=== PATIENT | male | born 1935 | race Caucasian/White ===

== ENCOUNTER 2021-12-28 14:09 | Emergency (ER) | payer MEDICARE, SELFPAY ==
[2021-12-28 14:35] VITALS: BP 110/63; PULSE 85; RESP 16; TEMP 36.4; O2SAT 99
--- NOTE | 2021-12-28 15:09 | ED.GENADULT ---
HPI - General Adult General Chief complaint: Unspecified Stated complaint: almost 600 blood glucose History of Present Illness HPI narrative: Tyler is a very pleasant 86M with a PMH of DMII, prostate cancer s/p surgery, and gout that presented to the emergency department with an elevated. glucose. For the last week his sugar has continued to rise. Today it was nearly 600 so he came in. He denies CP, SOB, N/V, diarrhea, polyuria and polydiapsia as well as fevers and chills. Related Data Home Medications Medication Instructions Recorded Confirmed allopurinol 100 mg tablet 100 mg PO DAILY 12/28/21 12/28/21 alogliptin 6.25 mg tablet 6.25 mg PO DAILY 12/28/21 12/28/21 bicalutamide 50 mg tablet 50 mg PO DAILY 12/28/21 12/28/21 glipizide 10 mg tablet 10 mg PO BID 12/28/21 12/28/21 hydrochlorothiazide 25 mg tablet 25 mg PO DAILY 12/28/21 12/28/21 lisinopril 20 mg tablet 20 mg PO DAILY 12/28/21 12/28/21 simvastatin 40 mg tablet 40 mg PO HS 12/28/21 12/28/21 tramadol 50 mg tablet 50 mg PO Q6H PRN Pain 12/28/21 12/28/21 Allergies Allergy/AdvReac Type Severity Reaction Status Date / Time No Known Allergies Allergy Verified 12/28/21 15:37 Review of Systems Review of Systems: All systems reviewed & are unremarkable except as noted in HPI and below Exam Const: Nutritional Appearance: well nourished Orientation/consciousness: patient oriented x3 HENMT: Head: normal to inspection Eyes: Conjunctivae: conjunctivae normal Pupils: Equal, round and reactive pupils present EOM: EOMs intact bilaterally Neck: Neck: normal visual inspection Chest: Chest palpation & inspection: normal inspection of the chest Resp: Effort & Inspection: normal respiratory effort Cardio: Rate: regular rate Rhythm: regular rhythm GI: Other: normal to inspection Skin: General skin exam: normal color Neuro: General: patient oriented x3 and moves all extremities Extrem: Other: no deformity Psych: Mental Status: mental status grossly normal Course Course Emergency Course: he was given a liter of fluids and 10 u of insulin. Sugar came down to 280's so 5u was given and it came down to 216 Vital Signs Vital signs: Vital Signs Temperature 97.6 F 12/28/21 14:35 Pulse Rate 85 12/28/21 14:35 Respiratory Rate 16 12/28/21 14:35 Blood Pressure 110/63 12/28/21 14:35 Pulse Oximetry 99 12/28/21 14:35 Oxygen Delivery Room Air 12/28/21 14:35 Temperature 97.4 F L 12/28/21 18:25 Pulse Rate 83 12/28/21 18:25 Respiratory Rate 16 12/28/21 18:25 Blood Pressure 119/70 12/28/21 18:25 Pulse Oximetry 99 12/28/21 18:25 Oxygen Delivery Room Air 12/28/21 18:25 Medical Decision Making Vital Signs Vital Signs: Vital Signs Temperature 97.6 F 12/28/21 14:35 Pulse Rate 85 12/28/21 14:35 Respiratory Rate 16 12/28/21 14:35 Blood Pressure 110/63 12/28/21 14:35 Pulse Oximetry 99 12/28/21 14:35 Oxygen Delivery Room Air 12/28/21 14:35 Temperature 97.4 F L 12/28/21 18:25 Pulse Rate 83 12/28/21 18:25 Respiratory Rate 16 12/28/21 18:25 Blood Pressure 119/70 12/28/21 18:25 Pulse Oximetry 99 12/28/21 18:25 Oxygen Delivery Room Air 12/28/21 18:25 Lab Data Result diagrams: 12/28/21 15:15 12/28/21 15:15 Labs: Lab Results 12/28/21 12/28/21 12/28/21 Range/Units 15:15 15:15 15:15 WBC 12.8 H (4.8-10.8) K/mm3 RBC 4.82 (4.70-6.10) M/mm3 Hgb 14.4 (12.4-15.3) g/dL Hct 42.5 (37.0-46.0) % MCV 88.2 (78.0-102.0) fL MCH 29.9 (27.0-31.0) pg MCHC 33.9 (32.0-36.0) g/dL RDW 12.1 (11.6-14.4) % Plt Count 228 (150-420) K/mm3 MPV 10.4 (8.7-11.0) fl Immature Gran % (Auto) 0.5 H (0.0-0.0) % Neut % (Auto) 64.5 (50.0-70.0) % Lymph % (Auto) 25.2 (18.0-42.0) % [place] % (Auto) 7.7 (2.0-11.0) % Eos % (Auto) 1.3 (1.0-6.0) % Baso % (Auto) 0.8 (0.0-1.0) % Lymph # (Auto) 3.23
[2021-12-28] MEDS: SODIUM CHLORIDE 0.9% IV 1,000 ML 999 ML IV CONT (15:18)
[2021-12-28 15:20] LABS: Basophils Percent Auto 0.8 % (0.0-1.0); Eosinophils Absolute Auto 0.17 K/mm3 (0.02-0.50); Eosinophils Percent Auto 1.3 % (1.0-6.0); Hematocrit 42.5 % (37.0-46.0); Hemoglobin 14.4 g/dL (12.4-15.3); Immature Granulocyte Absolute 0.06 K/mm3 (0.00-0.00); Immature Granulocyte Percent A 0.5 % (0.0-0.0); Lymphocytes Absolute Auto 3.23 K/mm3 (1.10-4.50); Lymphocytes Percent Auto 25.2 % (18.0-42.0); Mean Corpuscular HGB Conc 33.9 g/dL (32.0-36.0); Mean Corpuscular Hemoglobin 29.9 pg (27.0-31.0); Mean Corpuscular Volume 88.2 fL (78.0-102.0); Mean Platelet Volume 10.4 fl (8.7-11.0); Monocytes Absolute Auto 0.99 K/mm3 (0.10-0.90); Monocytes Percent Auto 7.7 % (2.0-11.0); Neutrophils Absolute Auto 8.3 K/mm3 (1.7-7.2); Neutrophils Percent Auto 64.5 % (50.0-70.0); Platelet Count Result 228 K/mm3 (150-420); Red Blood Count 4.82 M/mm3 (4.70-6.10); Red Cell Distribution Width 12.1 % (11.6-14.4); White Blood Count 12.8 K/mm3 (4.8-10.8)
[2021-12-28 15:21] LABS: Add Urine Microscopic? YES; Appearance Urine Clear (Clear); Bilirubin Urine Negative (Negative); Blood Urine Negative (Negative); Color Urine Light Yellow (Yellow); Glucose Urine UA 3+ (Negative); Ketones Urine Negative (Negative); Leukocyte Esterase Ur Negative (Negative); Nitrate Urine Negative (Negative); Protein Urine Negative (Negative); Urobilinogen Urine 0.2 mg/dL (0.2-1.0)
[2021-12-28 15:22] LABS: HCO3 VBG 27.7 mEq/l (24.0-30.0); PCO2 VBG 51.6 mmHg (42.0-48.0); PO2 VBG 27.6 mmHg (35.0-45.0); pH VBG 7.35 (7.33-7.43)
[2021-12-28 15:23] LABS: Device ROOM AIR
[2021-12-28 15:25] LABS: Bacteria Urine None seen /hpf; RBC Urine None seen /hpf (0-2); WBC Urine None seen /hpf (0-3)
[2021-12-28 15:30] VITALS: BP 118/70; PULSE 79; RESP 16; O2SAT 100
[2021-12-28 15:38] LABS: Alanine Aminotransferase 45 U/L (16-63); Albumin Level 4.4 g/dL (3.4-5.0); Alkaline Phosphatase 117 U/L (46-116); Anion Gap 10 mmol/L (8-16); Aspartate Amino Transferase 20 U/L (15-37); Bilirubin,Total 0.6 mg/dL (0.00-1.00); Blood Urea Nitrogen 57 mg/dL (7-18); Calcium 10.2 mg/dL (8.5-10.1); Carbon Dioxide 27 mmol/L (21-32); Chloride 88 mmol/L (98-108); Estimated Glomerular Filt Rate 23; Magnesium 3.3 mg/dL (1.8-2.4); Osmolality Calculated 295 mOsm/kg (285-295); Potassium 4.3 mmol/L (3.5-5.1); Sodium 125 mmol/L (136-145); Total Protein 8.3 g/dL (6.4-8.2)
[2021-12-28 15:40] LABS: Glucose 455 mg/dL (70-99)
[2021-12-28] MEDS: INSULIN HUMAN REGULAR (*BKC) 100 UNITS/ML 10 UNITS IV PUSH (15:51)
[2021-12-28 16:30] VITALS: BP 124/79; PULSE 86; RESP 16; TEMP 36.4; O2SAT 98
[2021-12-28 16:39] LABS: Glucose Point of Care 287 mg/dl (65-105)
[2021-12-28] MEDS: INSULIN HUMAN REGULAR (*BKC) 100 UNITS/ML IV PUSH (17:18)
[2021-12-28 17:20] VITALS: BP 112/70; PULSE 71; RESP 14; O2SAT 98
[2021-12-28 18:13] LABS: Glucose Point of Care 216 mg/dl (65-105)
[2021-12-28 18:25] VITALS: BP 119/70; PULSE 83; RESP 16; TEMP 36.3; O2SAT 99
== END 2021-12-28 18:30 | disposition home or self-care (01) ==
PROVIDERS: Emergency Provider Family Medicine
DX: E11.65 Type 2 diabetes mellitus with hyperglycemia (principal); Z85.46 Personal history of malignant neoplasm of prostate
CPT/HCPCS: 80053; 81001; 82803; 82948; 83735; 85025; 96361; 96374; 96376; 99284; J1815; J7030